=== PATIENT | male | born 1980 | race Caucasian/White ===

== ENCOUNTER → 2024-03-24 | Day surgery (SDC) | payer OTHER ==
[2024-03-20 15:23] LABS: BASOPHILS # (AUTO) 0.1 X10'3 (0-0.2); BASOPHILS % (AUTO) 0.7 % (0-1); EOSINOPHILS # (AUTO) 0.3 X10'3 (0-0.9); LYMPHOCYTES # (AUTO) 2.7 X10'3 (1.1-4.8); LYMPHOCYTES % (AUTO) 27.7 % (21-51); MEAN CORPUSCULAR HEMOGLOBIN 35.6 PG (27.0-31.0); MEAN CORPUSCULAR HGB CONC 34.8 g/dL (33.0-36.5); MEAN CORPUSCULAR VOLUME 102.3 FL (78-98); MEAN PLATELET VOLUME 7.2 FL (7.4-10.4); MONOCYTES # (AUTO) 0.8 X10'3 (0-0.9); MONOCYTES % (AUTO) 8.2 % (2-12); NEUTROPHILS # (AUTO) 5.9 X10'3 (1.8-7.7); NEUTROPHILS % (AUTO) 60.4 % (42-75); PRE OP HEMATOCRIT 49.7 % (42.0-52.0); PRE OP HEMOGLOBIN 17.3 g/dL (14.0-17.9); PRE OP PLATELET COUNT 381 X10'3 (140-440); PRE OP WHITE BLOOD COUNT 9.7 10'3 (4.8-10.8); RED BLOOD COUNT 4.86 X10'6 (4.70-6.10); RED CELL DISTRIBUTION WIDTH 12.8 % (11.5-14.5)
[2024-03-20 15:34] LABS: ALBUMIN 3.3 G/DL (3.4-5.0); ALBUMIN/GLOBULIN RATIO 0.7 (1.1-1.5); ALKALINE PHOSPHATASE 63 IU/L (46-116); BLOOD UREA NITROGEN 11 MG/DL (7-18); BUN/CREATININE RATIO 14.3 (10.0-20.0); CALCIUM 8.9 MG/DL (8.5-10.1); CHLORIDE 102 MMOL/L (99-107); CREATININE 0.77 MG/DL (0.60-1.10); PRE OP ALT 30 U/L (30-65); PRE OP ANION GAP 6 (8-16); PRE OP AST 21 U/L (10-37); PRE OP BILIRUB, TOTAL 0.3 MG/DL (0.0-1.0); PRE OP GLUCOSE 91 MG/DL (70-104); PRE OP SODIUM 141 MMOL/L (135-145); TOTAL CARBON DIOXIDE 32.8 MMOL/L (24-32); eGFR > 90 ML/MIN
[2024-03-20 15:35] LABS: PRE OP POTASSIUM 3.8 MMOL/L (3.4-5.1)
[~2024-03-24] VITALS: Ht 175.3 cm; Wt 72.2 kg
[2024-03-24] VITALS (10 sets, daily range): BP systolic 113–133; BP diastolic 69–81; PULSE 67–88; RESP 14–18; TEMP 98.4; O2SAT 96–99
[~2024-03-24] MED LIST: DOXY-460 PO; LIDOcaine 1%/PF 5ML 10 MG/ML VIAL ONE; dexamethasone sod phosphate 4mg/ml inj. ONE; glycopyrrolate 0.2mg/ml inj ONE; neostigmine methylsulfate 1 MG/ML 10ml vial ONE; ondansetron/PF 4mg/2ml inj ONE; propofol inj 20 ML IV ONE
[2024-03-24] MEDS: ringers solution, lacted 1,000 ML IV SCH (11:55)
[2024-03-24] MEDS: famotidine 20mg tablet PO ONE (11:55)
[2024-03-24] MEDS: ipratropium/albuterol 3ml nebule NEB ONE (15:50)
== END | disposition home or self-care (01) ==
LOC: PAS 11:01
PROVIDERS: ATTEND Internal Medicine Critical Care Medicine
DX: R91.8 Other nonspecific abnormal finding of lung field (principal); J44.9 Chronic obstructive pulmonary disease, unspecified; F17.200 Nicotine dependence, unspecified, uncomplicated; J98.4 Other disorders of lung; Z79.899 Other long term (current) drug therapy; Z98.890 Other specified postprocedural states
CPT/HCPCS: 31627; 31628; 31629; 31653; 36415; 71250; 80053; 82948; 85025; 87015; 87070; 87102; 87116; 87206; 93005; 94640; 94760; J1100; J2405; J2704; J2710; J3490; J7120; Z7506; Z7512; 31622; 31623; 31625; 31626; 31635; 31654; A4618